=== PATIENT | male | born 1985 ===

== ENCOUNTER → 2020-08-25 | Outpatient (CLI) | payer OTHER ==
--- NOTE | 2020-08-25 16:33 | Diagnostic Imaging Report ---
Indication: Abdominal pain. Rule out gallstones. Technique: Multiplanar grayscale and duplex Doppler imaging of the abdomen Comparison: None Findings: Imaged portions of the abdominal aorta are normal in caliber. Imaged portions of the pancreatic head unremarkable in appearance. Hepatic contour is smooth. No focal hepatic mass lesion is appreciated sonographically. Imaged hepatic veins are patent. The main portal vein is patent with normal direction of flow. No gallstones or gallbladder sludge identified. No gallbladder wall thickening or pericholecystic fluid is seen. Sonographic Pino's sign reported as negative. No intrahepatic or extrahepatic biliary ductal dilatation. Common bile duct measures 2 mm diameter. Kidneys demonstrate normal echogenicity and are symmetric in size. There is no hydronephrosis or sonographically appreciable renal stone. No contour deforming renal masses appreciated sonographically. Spleen is unremarkable in size and appearance. No free fluid is demonstrated. IMPRESSION: Unremarkable abdominal sonogram. No evidence of cholelithiasis or gallbladder sludge as questioned clinically.
== END | disposition home or self-care (01) ==
LOC: RAD 14:27
DX: R10.9 Unspecified abdominal pain (principal)
CPT/HCPCS: 76700